=== PATIENT | female | born 2000 ===

== ENCOUNTER 2022-06-15 17:03 | Outpatient (CLI) | payer OTHER ==
[~2022-06-15] VITALS: Ht 165.1 cm; Wt 74.8 kg
== END 2022-06-16 10:07 | disposition home or self-care (01) ==
LOC: OBS/DEL 17:03
PROVIDERS: ATTEND Obstetrics & Gynecology
DX: O26.893 Other specified pregnancy related conditions, third trimester (principal); Z3A.33 33 weeks gestation of pregnancy; Z91.013 Allergy to seafood

== ENCOUNTER 2022-07-24 22:21 | Inpatient (IN) | payer OTHER ==
[~2022-07-24] VITALS: Ht 165.1 cm; Wt 83.0 kg
[2022-07-25] MEDS ORDERED: OBSTETRX ONE 38-1-22 PO (14:10)
== END 2022-07-27 11:58 | disposition home or self-care (01) | DRG 807 ==
LOC: OBS/DEL 22:21 → LDR 07-25 08:40 → OB/GYN 07-25 22:30
PROVIDERS: ADMIT Obstetrics & Gynecology; ATTEND Obstetrics & Gynecology
PROC: 10E0XZZ Delivery of Products of Conception, External Approach (ICD-10-PCS; principal; 2022-07-25)
PROC: 0KQM0ZZ Repair Perineum Muscle, Open Approach (ICD-10-PCS; 2022-07-25)
PROC: 3E033VJ Introduction of Other Hormone into Peripheral Vein, Percutaneous Approach (ICD-10-PCS; 2022-07-25)
PROC: 3E0P7VZ Introduction of Hormone into Female Reproductive, Via Natural or Artificial Opening (ICD-10-PCS; 2022-07-25)
PROC: 4A1HXCZ Monitoring of Products of Conception, Cardiac Rate, External Approach (ICD-10-PCS; 2022-07-25)
DX: O70.1 Second degree perineal laceration during delivery (principal); Z37.0 Single live birth; Z3A.39 39 weeks gestation of pregnancy; Z20.822 Contact with and (suspected) exposure to COVID-19